=== PATIENT | male | born 1995 | race Caucasian/White ===

== ENCOUNTER 2017-01-06 12:39 | Emergency (ER) | payer OTHER ==
[~2017-01-06] VITALS: Ht 175.3 cm; Wt 70.3 kg
[2017-01-06 14:00] LABS: HEMATOCRIT 47.7 % (39.2-51.8); HEMOGLOBIN 16.1 g/dL (13.7-18.0); WHITE BLOOD COUNT 6.9 x10^3/uL (4.5-13.2)
[2017-01-06] MEDS ORDERED: ONDANSETRON 2MG/ML, 2ML IVPush ONE (14:00)
[2017-01-06] MEDS ORDERED: MAALOX/HYOSCYAMINE/LIDOCAINE 45 ML BTL PO ONE (14:00)
[2017-01-06] MEDS ORDERED: FAMOTIDINE 20 MG/2 ML IVP ONE (14:00)
[2017-01-06] MEDS ORDERED: SODIUM CHLORIDE FLUSH 10ML SYR IVF ONE (14:00)
[2017-01-06 14:12] LABS: ASPARTATE AMINO TRANSFERASE 18 U/L (15-37); BLOOD UREA NITROGEN 18 mg/dL (7-18)
[2017-01-06] MEDS ORDERED: FAMOTIDINE 20 MG/2 ML ONE (14:24)
[2017-01-06] MEDS ORDERED: MAALOX/HYOSCYAMINE/LIDOCAINE 45 ML BTL ONE (14:24)
[2017-01-06] MEDS ORDERED: ONDANSETRON 2MG/ML, 2ML ONE (14:24)
[2017-01-06] MEDS ORDERED: DEXT7.5T5 PO (14:39)
[2017-01-06 15:49] VITALS: BP 124/82
== END 2017-01-06 15:51 | disposition home or self-care (01) ==
LOC: ED 15:24
DX: K27.3 Acute peptic ulcer, site unspecified, without hemorrhage or perforation (principal); R10.13 Epigastric pain; Z88.0 Allergy status to penicillin
CPT/HCPCS: 36415; 80053; 83690; 85025; 96374; 96375; 99284; J2405; S0028

== ENCOUNTER 2017-03-13 14:11 | Emergency (ER) | payer OTHER ==
[~2017-03-13] VITALS: Ht 175.3 cm; Wt 74.0 kg
[~2017-03-13 14:11] MED LIST: DEXT7.5T5 PO
[2017-03-13 14:32] VITALS: BP 135/75
== END 2017-03-13 15:58 | disposition home or self-care (01) ==
LOC: ED 15:55
DX: S63.521A Sprain of radiocarpal joint of right wrist, initial encounter (principal); X58.XXXA Exposure to other specified factors, initial encounter; Y93.42 Activity, yoga; Y92.89 Other specified places as the place of occurrence of the external cause; Y99.8 Other external cause status
CPT/HCPCS: 99284

== ENCOUNTER 2018-07-24 08:37 | Emergency (ER) | payer OTHER ==
[~2018-07-24] VITALS: Ht 175.3 cm; Wt 75.0 kg
[2018-07-24 08:39] VITALS: BP 129/85
--- NOTE | 2018-07-24 09:29 | NUR ---
PT TO CT SCAN
--- NOTE | 2018-07-24 10:02 | NUR ---
Patient/Caregiver given discharge instructions and they have confirmed that they understand the instructions. Patient ambulatory with steady gait.
== END 2018-07-24 10:13 | disposition home or self-care (01) ==
LOC: ED 10:05
DX: S06.0X0A Concussion without loss of consciousness, initial encounter (principal); X58.XXXA Exposure to other specified factors, initial encounter; Y93.89 Activity, other specified; Y92.009 Unspecified place in unspecified non-institutional (private) residence as the place of occurrence of the external cause; Y99.8 Other external cause status
CPT/HCPCS: 70450; 99284

== ENCOUNTER 2020-05-28 19:32 | Emergency (ER) | payer OTHER ==
[~2020-05-28] VITALS: Ht 175.3 cm; Wt 76.0 kg
--- NOTE | 2020-05-28 19:58 | NUR ---
PT HAS C/O HITTING HEAD AND BACK ON ROCK TODAY SNOWBOARDING AROUND 11 AM. PT DENIED LOC. PT ALSO HAS RIGHT LEG PAIN
[2020-05-28] MEDS ORDERED: METHOCARBAMOL 750 MG TABLET PO ONE (20:30)
[2020-05-28] MEDS ORDERED: KETOROLAC 30 MG/1 ML IM ONE (20:30)
[2020-05-28] MEDS ORDERED: KETOROLAC 30 MG/1 ML ONE (20:31)
[2020-05-28] MEDS ORDERED: METHOCARBAMOL 750 MG TABLET ONE (20:31)
[2020-05-28 20:36] VITALS: BP 127/79
--- NOTE | 2020-05-28 20:47 | NUR ---
PT IN BED. WOUNDS BEING CLEANED
[2020-05-28] MEDS ORDERED: NEOSPORIN OINT. PKT 1 PACKET ONE (20:58)
== END 2020-05-28 21:21 | disposition home or self-care (01) ==
LOC: ED 21:00
DX: S01.01XA Laceration without foreign body of scalp, initial encounter (principal); S30.0XXA Contusion of lower back and pelvis, initial encounter; S50.311A Abrasion of right elbow, initial encounter; S09.90XA Unspecified injury of head, initial encounter; W18.39XA Other fall on same level, initial encounter; Y93.79 Activity, other specified sports and athletics; Y92.830 Public park as the place of occurrence of the external cause; Y99.8 Other external cause status
CPT/HCPCS: 12031; 72110; 99284